=== PATIENT | female | born 1970 | race Caucasian/White ===

== ENCOUNTER 2023-01-03 12:33 | Outpatient (CLI) | payer OTHER, SELFPAY ==
--- NOTE | 2023-01-03 13:00 | CRLHL7_ITS ---
For Patients: As a result of the Century Cures Act, medical imaging exams and procedure reports are released immediately into your electronic medical record. You may view this report before your referring provider. If you have questions, please contact your health care provider. BILATERAL SCREENING MAMMOGRAM WITH COMPUTER-AIDED DETECTION AND TOMOSYNTHESIS TECHNIQUE: CC, MLO and Implant displaced views were obtained. These mammographic images have been obtained using full-field digital technique. These mammographic images were interpreted with the benefit of computer-aided detection. Breast Tomosynthesis was used in this interpretation. COMPARISON FILM: 12/29/21, 01/16/18, 12/29/15. FINDINGS: The breasts are heterogeneously dense, which may obscure small masses IMPRESSION: There is no radiographic evidence for malignancy. ASSESSMENT: BI-RADS Category 2: Benign RECOMMENDATION: Routine screening mammogram in 1 year. A lay language report of this examination will be provided to the patient. Joni Mcneill M.D. Diagnostic Radiologist [email or web address] Transcribed: 3:43 pm DW/Dictated by: Joni Mcneill MD @ 01/04/2023 9:46:00 AM (Electronically Signed)
== END 2023-01-03 12:34 | disposition home or self-care (01) ==
LOC: MAMMO 12:35
PROVIDERS: PCP Physician Assistant Medical; Visit Provider Physician Assistant Medical
DX: Z12.31 Encounter for screening mammogram for malignant neoplasm of breast (principal); R92.2 Inconclusive mammogram
CPT/HCPCS: 77063; 77067

== ENCOUNTER 2023-07-02 07:09 | Outpatient (CLI) | payer OTHER, SELFPAY ==
--- NOTE | 2023-07-02 07:15 | CRLHL7_ITS ---
For Patients: As a result of the 21st Century Cures Act, medical imaging exams and procedure reports are released immediately into your electronic medical record. You may view this report before your referring provider. If you have questions, please contact your health care provider. HISTORY: Left shoulder pain. TECHNIQUE: Noncontrast MRI of the left shoulder. COMPARISON: Radiographs 06/19/2023. FINDINGS: Rotator cuff: Distal supraspinatus tendon is severely abnormal over an approximately 2 cm anterior/posterior x 2 cm medial/lateral extent related to a combination of severe tendinosis and distal tendon tearing. As noted on coronal oblique T2 image #10 of series 7, there is focal indistinctness of the tendon centered approximately 0.8 cm proximal to the footplate. While this is hypointense to fluid, given the focal indistinct nature of the tendon fibers in that location there is likely high-grade tendon tearing, possibly a small area of full-thickness fenestration. Note that the measurements above include both elements of higher grade and lower grade distal tendon tearing. The supraspinatus muscle mass is maintained. There is mild distal infraspinatus tendinosis. No high-grade infraspinatus tendon tear or infraspinatus muscle atrophy. Distal teres minor tendon is intact. Teres minor muscle mass is maintained. Mild distal subscapularis tendinosis. No subscapularis tendon tear or muscle atrophy. - AC joint and coracoacromial arch: AC joint degenerative arthrosis. Coracoclavicular ligament intact. Type 2 acromial morphology. There is lateral downward sloping of the acromion. No os acromiale. No significant subacromial spurring. The acromiohumeral interval measures approximately 7 mm. There is a small amount of subacromial-subdeltoid bursal fluid. The subcoracoid interval is patent. - Biceps-labral complex: Tendinosis of the proximal long head of the biceps tendon. The tendon may be mildly frayed. There is no dislocation of tendon from bicipital groove. Small amount of fluid is present within the biceps tendon sheath. Mild fraying of the superior labrum. Labrum below the level of the equator is intact. - Glenohumeral Joint: Small amount of joint fluid. Mild synovitis within the subscapular recess. The articular surfaces are smooth without focal articular cartilage defect. - Bones and soft tissues: No acute fracture or avascular necrosis. No abnormality within the suprascapular or spinoglenoid notches nor within the quadrilateral space. IMPRESSION: 1. Severely abnormal distal supraspinatus tendon reflecting a combination of severe tendinosis and high-grade tendon tearing. No muscle atrophy. Mild infraspinatus and subscapularis tendinosis. 2. Subacromial-subdeltoid bursitis. 3. Tendinosis of the proximal long head of the biceps tendon. 4. AC joint degenerative changes. Dictated by Dillan Ramirez MD @ 07/03/2023 9:19:07 AM (Electronically Signed)
== END 2023-07-02 07:10 | disposition home or self-care (01) ==
PROVIDERS: PCP Physician Assistant Medical; Visit Provider Emergency Medicine
DX: M25.512 Pain in left shoulder (principal); M75.102 Unspecified rotator cuff tear or rupture of left shoulder, not specified as traumatic; M75.52 Bursitis of left shoulder
CPT/HCPCS: 73221

== ENCOUNTER 2023-07-16 10:41 | Outpatient (CLI) | payer OTHER, SELFPAY | END 2023-07-16 10:42 | disposition home or self-care (01) | PROVIDERS: PCP Physician Assistant Medical; Visit Provider Family Medicine | DX: Z01.818 Encounter for other preprocedural examination (principal) | CPT/HCPCS: 80048; 85025 ==

== ENCOUNTER 2023-07-17 07:00 | Day surgery (SDC) | payer OTHER, SELFPAY ==
[2023-07-17] VITALS (16 sets, daily range): BP systolic 97–126; BP diastolic 65–88; PULSE 64–88; RESP 16–18; TEMP 36.1–36.7; O2SAT 95–98; BMI 29.8
[2023-07-17] MEDS: LACTATED RINGERS 1000 ML 1,000 ML 100 ML IV ×2 (07:05→10:17)
[2023-07-17] MEDS: SODIUM CHLORIDE 0.9 % (FLUSH) 10 ML SYRINGE IVF (07:48)
[2023-07-17] MEDS: fentaNYL 100 MCG/2 ML inj IVP (08:51)
[2023-07-17] MEDS: MIDAZOLAM HCL 1 MG/ML inj IVP (08:51)
--- NOTE | 2023-07-17 08:59 | SUR.PREOP ---
TIME?OUT:?0850 PT/RN/MDA?VERIFICATION?OF?SURGICAL?SITE Left shoulder,?PROCEDURE Nerve Block,?AND?CONSENT OBTAINED?PRIOR?TO?INVASIVE?PROCEDURE.
[2023-07-17] MEDS: CEFAZOLIN 2 GM in 0.9 % SODIUM CHLORIDE Mini-bag 100 ML IVPB (09:25)
--- NOTE | 2023-07-17 09:25 | W.PM.NB ---
Nerve Block Nerve Block Time Seen by Provider: 08:55 Date Seen: 07/17/23 Side: left
--- NOTE | 2023-07-17 09:25 | W.ANESCHARGE ---
Anesthesia Charges Start Date/Time Anesthesia Start Date: 07/17/23 Anesthesia Start Time: 09:03 Stop Date/Time Anesthesia Stop Date: 07/17/23 Anesthesia Stop Time: 11:16
[2023-07-17] MEDS: EPINEPHrine 1 MG in SODIUM CHLORIDE IRRIG SOLUTION 3,000 ML 9003 MG IRRIGATION ×5 (10:10→10:46)
--- NOTE | 2023-07-17 10:59 | W.PM.H&PU ---
History & Physical Update History & Physical Update H&P Reviewed and patient assessed: No changes noted
--- NOTE | 2023-07-17 11:00 | P.ORPRC_ITS ---
Procedure Note Date of procedure: 07/17/23 Procedure: PREOPERATIVE DIAGNOSES: 1. Left shoulder rotator cuff tear-upper border subscapularis and high-grade partial-thickness supraspinatus 2. Left shoulder AC degenerative joint disease, primary, moderate-severe 3. Left shoulder subacromial impingement syndrome. POSTOPERATIVE DIAGNOSES: 1. Left shoulder rotator cuff tear-upper border subscapularis and high-grade partial-thickness supraspinatus 2. Left shoulder AC degenerative joint disease, primary, moderate-severe 3. Left shoulder subacromial impingement syndrome. 4. Left shoulder partial-thickness long of the biceps tendon tearing NAME OF OPERATION: 1. Left shoulder arthroscopic rotator cuff repair-upper border subscapularis and high-grade partial thickness supraspinatus 2. Left shoulder arthroscopic distal clavicle excision 3. Left shoulder arthroscopic limited glenohumeral debridement 4. Left shoulder arthroscopic bursectomy, subacromial decompression/partial acromioplasty. SURGEON: Erich Jacobson MD REAL ESTATE SUBAGENT: Roque Barnes. Of note, a skilled assistant director of nursing was critical for this case to aide in patient positioning, suture manipulation, arm positioning, instrument positioning, and closure. ANESTHESIA: General plus preoperative supraclavicular block. EBL: 25 mL IMPLANTS: Arthrex 4.75mm BioComposite SwiveLock suture anchor (x2); Arthrex 5.5 mm BioComposite SwiveLock suture anchor (x1) Arthrex 2.6 mm knotless FiberTak RC (x1) COMPLICATIONS: None evident INDICATIONS: The patient is a pleasant, 52-year-old female who has experienced left shoulder pain that has been increasing in recent time. Physical exam and imaging were consistent with a rotator cuff tear. Given their findings, as well as the weakness and pain, and inadequate response to nonoperative management, recommendation was made for surgery. FINDINGS: Exam under anesthesia revealed stable shoulder with excellent range of motion. The diagnostic arthroscopy revealed healthy chondral surfaces of the glenohumeral joint. The Subscapularis tendon was torn from its upper border with mild retraction. The long head of the biceps tendon was intact but did show partial-thickness tearing. The superior rotator cuff tendon was found to be torn and high-grade partial-thickness manner through the anterior portion of the supraspinatus to the midportion. The labrum was was relatively healthy with minimal fraying. No loose bodies were identified within the pouch or subscapularis recess. PROCEDURE: Following a thorough discussion of risks, benefits, and alternatives, consent was obtained and the left shoulder was marked. The patient was brought to the operating room and placed supine on the operating table. Induction of anesthesia was completed after preoperative supraclavicular block was administered in preop holding. Appropriate time out was performed identifying proper patient, site, and procedure. 2 g IV Ancef was administered within 1 hour of incision preoperatively. The left upper extremity was prepped and draped in the appropriate sterile fashion using ChloraPrep prep. This was after the patient was positioned in the beach chair with their head in neutral alignment and all bony prominences well padded. The shoulder was insufflated with 20mL of normal saline via an 18g spinal needle from a posterior approach. An 11 blade skin incision allowed a blunt trochar to be inserted and diagnostic arthroscopy to be performed with the findings as noted above. An anterior portal was established with an outside in technique. This allowed the probe to be inserted and confirm the diagnostic arthroscopic findings. The shaver was then inserted and allowed debridement of long head of biceps tendon of the partial-thickness tearing which was low-grade. Following this, the upper border subscapularis was repaired after debriding the lesser tuberosity with the shaver and [place] cautery. Subscapularis was captured in horizontal mattress fashion with a fiber tape suture. The tails were brought to a single anchor in the lesser tuberosity with excellent reapproximation of the subscap tendon and good excursion/tension. Thereafter, the subacromial space was entered. Here, a complete bursectomy and partial acromioplasty/subacromial decompression was performed with a combination of radiofrequency ablator, the shaver, and a 5.5 mm bur. Additionally, distal clavicle excision was performed with the bur. 8 mm of distal clavicle was resected based on the width of our bur. Further inspection of the supraspinatus and infraspinatus rotator cuff was performed. This identified the tear as noted above. The margins of the tear were debrided, and the greater tuberosity was debrided with a combination of the apollo cautery, shaver, and bur on reverse setting. After gentle decortication, a single FiberTak 2.6 mm RC was placed for medial anchor. The 4 suture tails were passed independently. They were brought to 2 separate lateral row anchors including a FiberLink in a luggage tag fashion on the far posterior corner. The rotator cuff showed excellent reapproximation of the greater tuberosity with good security upon probing. Prior to anchor bus van driver removal, the eyelet sutures were tugged on for each anchor and found that the anchor had excellent stability within the bone. The shoulder was placed through range of motion and found to be stable. The rotator cuff was re-probed and found to be stable. Instruments were removed. Excess fluid was drained, closure performed with 4-0 Monocryl and Steri-Strips. Dressings were applied. Sling was applied. The patient was awoken from anesthesia and transferred to the PACU in stable condition. A skilled assistant director of nursing was critical for this case to aid in patient positioning, limb positioning, skill to manipulate arthroscopic instruments and camera, suture management, patient safety, and closure. PLAN: 1. Elbow, forearm, wrist and digit range of motion of operative extremity as tolerated. 2. Encouraged ice. 3. Percocet for pain as needed. 4. Sling at all times except for ROM and showering. 5. Follow up with PA visit in 1-2 weeks for wound check. Initiate physical therapy following that visit for passive range of motion. Initiate active assisted range of motion at 4 weeks. May do pendulums now.
--- NOTE | 2023-07-17 11:22 | W.ANESCHARGE ---
Anesthesia Charges Start Date/Time Anesthesia Start Date: 07/17/23 Anesthesia Start Time: 09:03 Stop Date/Time Anesthesia Stop Date: 07/17/23 Anesthesia Stop Time: 11:16
--- NOTE | 2023-08-06 07:01 | P.NB_ITS ---
Nerve Block Nerve Block Time Seen by Provider: 08:55 Date Seen: 07/17/23 Type of block requested by surgeon for post-operative analgesia: supraclavicular Side: left Time out performed: Yes Verification of patient name: Yes Verification of date of : Yes Site marking: site marked Name of person performing procedure: Danny Continuous monitoring Was continuous monitoring of O2 sat, B/P, quality assurance monitor body, recorded every 15 minutes?: Yes Procedure Checklist: sterile prep, needles and gloves Ultrasound guided. Images saved: Yes Medications given in 5ml increments after negative aspiration: Ropivicaine %: 0.5 mL: 20 Needle gauge: 22 Decadron (mg): 10 Precedex (mcg): 25 Patient tolerated procedure well: Yes Block Charges Block Charge (with Pro Fee): Brachial Plexus Use of Ultrasound Machine for Block: Yes- US Guidance/pain block
== END 2023-07-17 13:25 | disposition home or self-care (01) ==
PROVIDERS: PCP Physician Assistant Medical; Visit Provider Orthopaedic Surgery Sports Medicine
PROC: (CPT 29805; principal; 2023-07-17 09:15)
DX: M75.102 Unspecified rotator cuff tear or rupture of left shoulder, not specified as traumatic (principal); M19.012 Primary osteoarthritis, left shoulder; M75.42 Impingement syndrome of left shoulder; S46.112A Strain of muscle, fascia and tendon of long head of biceps, left arm, initial encounter; G89.18 Other acute postprocedural pain
CPT/HCPCS: 29827; 29826; 29824; 29822; 01630; 64415; 76942; C1713; J0171; J0690; J1100; J2250; J2405; J2704; J2795; J3010; J3490; J7120; L3670

== ENCOUNTER 2023-12-26 08:00 | Outpatient (RCR) | payer OTHER, SELFPAY | END 2024-04-24 23:59 | disposition home or self-care (01) | PROVIDERS: PCP Physician Assistant Medical; Visit Provider Orthopaedic Surgery Sports Medicine | DX: M19.012 Primary osteoarthritis, left shoulder (principal); M75.102 Unspecified rotator cuff tear or rupture of left shoulder, not specified as traumatic; Z51.89 Encounter for other specified aftercare; M75.22 Bicipital tendinitis, left shoulder | CPT/HCPCS: 97110; 97140; 97162 ==

== ENCOUNTER 2024-01-07 15:00 | Outpatient (CLI) | payer OTHER, SELFPAY ==
--- NOTE | 2024-01-07 15:20 | MM_ITS ---
Patient: GINNA MOORE Facility:?[facility] Patient ID:?[id number] Site Patient ID:?[id number]. Site :?[id number] Study:?XRay-Breast Bilateral 3D W/CAD-01/07/2024 3:42:27 PM Ordering Physician:Chintan Final Report: BILATERAL SCREENING MAMMOGRAM WITH COMPUTER-AIDED DETECTION AND TOMOSYNTHESIS TECHNIQUE: CC, MLO and Implant displaced views were obtained. These mammographic images have been obtained using full-field digital technique. These mammographic images were interpreted with the benefit of computer-aided detection. Breast Tomosynthesis was used in this interpretation. COMPARISON FILM: 01/03/23, 12/29/21, 01/16/18. FINDINGS: There are scattered areas of fibroglandular density. IMPRESSION: There is no radiographic evidence for malignancy. ASSESSMENT: BI-RADS Category 2: Benign RECOMMENDATION: Routine screening mammogram in 1 year. A lay language report of this examination will be provided to the patient. Joni Mcneill M.D. Diagnostic Radiologist [email or web address] DSM/sp R& Transcribed: 7:13 p.m. SP/Dictated by: Joni Mcneill MD @ 01/09/2024 12:00:00 PM Signed by:?Joni Mcneill MD @01/10/2024 11:26:35 AM (Electronic Signature)
== END 2024-01-07 15:01 | disposition home or self-care (01) ==
LOC: MAMMO 15:00
PROVIDERS: PCP Physician Assistant Medical; Visit Provider Physician Assistant Medical
DX: Z12.31 Encounter for screening mammogram for malignant neoplasm of breast (principal)
CPT/HCPCS: 77063; 77067

== ENCOUNTER 2024-06-12 09:32 | Outpatient (CLI) | payer OTHER, SELFPAY | END 2024-06-12 09:33 | disposition home or self-care (01) | PROVIDERS: PCP Physician Assistant Medical; Visit Provider Family Medicine | DX: R73.03 Prediabetes (principal); Z13.220 Encounter for screening for lipoid disorders | CPT/HCPCS: 80053; 80061 ==

== ENCOUNTER 2025-01-22 14:42 | Outpatient (CLI) | payer BC, SELFPAY ==
--- NOTE | 2025-01-22 15:00 | CRLHL7_ITS ---
For Patients: As a result of the Century Cures Act, medical imaging exams and procedure reports are released immediately into your electronic medical record. You may view this report before your referring provider. If you have questions, please contact your health care provider. INDICATION: BILATERAL SCREENING MAMMOGRAM, ASYMPTOMATIC 54 Y/O FEMALE COMPARISON: 01/07/2024, 01/03/2023, 12/29/2021 TECHNIQUE: Digital mammogram in CC and MLO projections including computer-aided detection (CAD) and tomosynthesis. BREAST COMPOSITION: There are scattered areas of fibroglandular density. FINDINGS: No suspicious findings. ASSESSMENT: BI-RADS 2 Benign RECOMMENDATION: Annual screening mammogram. A lay language report of this examination will be provided to the patient. Dictated by: Joni Mcneill MD @ 01/25/2025 12:01:28 (Electronically Signed)
== END 2025-01-22 14:43 | disposition home or self-care (01) ==
LOC: MAMMO 14:43
PROVIDERS: PCP Physician Assistant Medical; Visit Provider Physician Assistant Medical
DX: Z12.31 Encounter for screening mammogram for malignant neoplasm of breast (principal); Z98.82 Breast implant status
CPT/HCPCS: 77063; 77067